=== PATIENT | male | born 1990 ===

== ENCOUNTER → 2020-09-02 | Outpatient (CLI) | payer SELFPAY ==
[~2020-09-02] MED LIST: COVID-19 VACCINE (PFIZER)/PF 30 MCG/0.3 ML VIAL IM ONE; EPINEPHRINE INJ/PF 1 MG/1 ML AMPULE IM PRN
== END ==
LOC: EMPHEALTH 16:18
PROVIDERS: ATTEND Internal Medicine
DX: Z23 Encounter for immunization (principal)
CPT/HCPCS: 91300